=== PATIENT | female | born 1975 | race Caucasian/White ===

== ENCOUNTER → 2017-03-14 | Outpatient (CLI) | payer BC, OTHER ==
[~2017-03-14] MED LIST: PEDICHW53 PO
--- NOTE | 2017-03-14 16:16 | DIAGNOSTIC IMAGING REPORT ---
BRAIN WITHOUT CONTRAST HISTORY: Mental status change LEFT FACE/ARM TINGLING, FACIAL DROOP TECHNIQUE: Multiplanar multisequence MRI of the brain was performed without the use of contrast. COMPARISON STUDY: None. FINDINGS: Diffusion-weighted images show no evidence for an acute ischemic process. Signal characteristics of the cerebellar as well as cerebral hemispheres are unremarkable. Ventricular system is midline. Structures of the sella and parasellar region are unremarkable. An empty sella is present. Cerebellar tonsils are somewhat low-lying. IMPRESSION: Low-lying cerebellar tonsils. Otherwise negative MRI brain. The above report was generated using voice recognition software. It may contain grammatical, syntax or spelling errors. Electronically signed by: Jonn Hurst M.D. 03/14/2017 4:14 PM Dictated Date/Time: 03/14/2017 4:12 PM
== END | disposition home or self-care (01) ==
LOC: C.MRIBC 15:31
PROVIDERS: ATTEND Physician Assistant
DX: R20.2 Paresthesia of skin (principal); R29.810 Facial weakness; R51 Headache; M54.2 Cervicalgia